=== PATIENT | male | born 1995 | race Caucasian/White ===

== ENCOUNTER 2024-09-16 16:02 | Emergency (ER) | payer MEDICAID ==
[~2024-09-16] VITALS: Ht 182.9 cm; Wt 118.2 kg
--- NOTE | 2024-09-16 16:42 | RADIOLOGY REPORT ---
CHEST RADIOGRAPH Indication: cough Technique: Single frontal view of the chest was obtained COMPARISON: None FINDINGS: Lines and Tubes: None Lungs: Clear Pleura: No effusion. No pneumothorax. Cardiomediastinal contours: Unremarkable Bones: Unremarkable IMPRESSION: No acute disease.
[2024-09-16 16:45] LABS: BASOPHILS % (AUTO) 0.6 % (0-1); EOSINOPHILS # (AUTO) 0.1 X10'3 (0-0.9); EOSINOPHILS % (AUTO) 1.4 % (0-6); HEMATOCRIT 48.7 % (42.0-52.0); HEMOGLOBIN 17.4 g/dl (14.0-17.9); LYMPHOCYTES # (AUTO) 1.5 X10'3 (1.1-4.8); LYMPHOCYTES % (AUTO) 27.6 % (21-51); MEAN CORPUSCULAR HEMOGLOBIN 32.9 PG (27.0-31.0); MEAN CORPUSCULAR HGB CONC 35.7 g/dL (33.0-36.5); MEAN CORPUSCULAR VOLUME 92.2 FL (78-98); MEAN PLATELET VOLUME 6.5 FL (7.4-10.4); MONOCYTES # (AUTO) 1.1 X10'3 (0-0.9); MONOCYTES % (AUTO) 20.4 % (2-12); NEUTROPHILS # (AUTO) 2.6 X10'3 (1.8-7.7); PLATELET COUNT 246 X10'3 (140-440); RED BLOOD COUNT 5.28 X10'6 (4.70-6.10); RED CELL DISTRIBUTION WIDTH 13.2 % (11.5-14.5); WHITE BLOOD COUNT 5.3 X10'3 (4.5-11.0)
[2024-09-16 17:06] LABS: ANION GAP 10 (8-16); BLOOD UREA NITROGEN 14 MG/DL (7-18); BUN/CREATININE RATIO 12.1 (10.0-20.0); CALCIUM 8.9 MG/DL (8.5-10.1); CHLORIDE 106 MMOL/L (99-107); CREATININE 1.16 MG/DL (0.60-1.10); GLUCOSE 121 MG/DL (70-104); POTASSIUM 3.6 MMOL/L (3.5-5.1); SODIUM 141 MMOL/L (135-145); eCRCL 101 ML/MIN; eGFR 73 ML/MIN
--- NOTE | 2024-09-16 17:22 | Physician Documentation ---
History of Present Illness ~ Chief Complaint: Flu Symptoms Stated Complaint: COLD SYMPTOMS Time Seen by MD: 16:34 OK to notify your PCP?: Yes Source: patient Mode of Arrival: Ambulatory Exam Limitations: no limitations HPI This is a 29-year-old male who comes in complaining of cold and flu symptoms for the past three or four days. Complains of runny nose, generalized body aches, sore throat and cough. He denies nausea vomiting diarrhea. He was that is subjective tactile fevers. Medication Reconciliation Allergies: Coded Allergies: No Known Allergies (Unverified , 09/16/24) Physical Exam Vital Signs: Temperature: 97.2, Heart Rate: 105, Respiratory Rate: 16, BP: 150/103, Pulse Oximetry: 95, Weight: 118.180 Oxygen Flow Rate: 0 Pulse Oximetry Reflects: adequate oxygenation General Appearance: alert, WD/WN, no apparent distress Oropharynx: normal inspection, moist mucous membranes Neck: non-tender, full range of motion, supple, normal inspection, trachea midline Respiratory No accessory muscle use or retractions. Lungs are clear to auscultation all harper. Skin: normal color, warm/dry Neurologic: oriented x4 Progress Results/Orders Reviewed/noted all lab results: Yes Results/Orders Vital Signs 09/16/24 09/16/24 09/16/24 16:06 16:35 16:41 Temp 97.2 Pulse 104 105 Resp 16 16 B/P (MAP) 144/89 150/103 (119) Pulse Ox 97 95 O2 Flow Rate 0 Laboratory Tests Test 09/16/24 16:29 CBC Comment Sodium Level 141 Potassium Level 3.6 Chloride Level 106 Carbon Dioxide Level 25.0 Anion Gap 10 Blood Urea Nitrogen 14 Creatinine 1.16 H Estimated GFR/1.73 m2 73 BUN/Creatinine Ratio 12.1 Glucose Level 121 H Calcium Level 8.9 Albumin 4.0 Chemistry Comments EKG/XRAY/CT/US/VASC/MRI Chest X-Ray : Interpreted By: self Views: 1 VIEW Additional Comments Chest x-ray one view interpreted by me: No acute disease process. Lung harper and cardiac silhouette are appropriate. No bony abnormality. soft tissues unremarkable Medical Decision Making Findings The patient was constellation of the symptoms are all consistent with a viral etiology and it was complaints are all very subjective. The chest x-ray and lab work was initiated through triage all which were negative. It was gauze the patient and reassured her that has this is all undoubtedly viral and that is it was vital signs and physical examination were appropriate. I instructed him to continue with symptomatic treatment with [id number] medications, drink lots of water and get plenty of rest. Differential Diagnosis Viral syndrome. COVID. Influenza. RSV. pneumonia. Departure Disposition: HOME / SELF CARE / HOMELESS Impression: Primary Impression: Viral infection Condition: Stable Discharge Instructions: Viral Illness, Adult Additional Instructions: The blood work and chest x-ray today did not show any findings of a bacterial infection in your symptoms are all undoubtedly caused by a virus. The treatment for viruses to treat the symptoms which means cough medicine for cough, ibuprofen or Tylenol for body aches and fever, drink lots of water and get plenty of rest. You can follow up with the primary care physician for recheck in the next couple of days. Return to the ER for any worsening or concerning symptoms. Referrals: NO PRIMARY CARE PROVIDER (PCP) Signature Scribe Signature: No scribe Attestation: The note accurately reflects work and decisions made by me.Alva TELLO 09/16/24 17:22 ALVA YOUNG September 16, 2024 17:22
[2024-09-16 17:41] VITALS: BP 154/97; PULSE 85; RESP 18; TEMP 97.2; O2SAT 95
[2024-09-16 18:27] LABS: PLATELET ESTIMATE NORMAL
[2024-09-16 18:28] LABS: SPHEROCYTES FEW
== END 2024-09-16 17:40 | disposition home or self-care (01) ==
LOC: ER 16:03
DX: B34.9 Viral infection, unspecified (principal)
CPT/HCPCS: 36415; 71045; 80048; 85008; 85025; 99284